=== PATIENT | female | born 1950 | race Caucasian/White ===

== ENCOUNTER 2016-10-12 18:45 | Emergency (ER) | payer OTHER ==
[~2016-10-12] VITALS: Ht 149.9 cm; Wt 49.1 kg
[2016-10-12 18:49] VITALS: Ht 149.9 cm; Wt 49.1 kg
[2016-10-12] MEDS ORDERED: ONDANSETRON (ODT) 4 MG TAB ODT STA (19:55)
[2016-10-12] MEDS ORDERED: HYDROCODONE/APAP (10/325) TAB PO ONE (20:00)
[2016-10-12] MEDS ORDERED: DIPHTH/TET/ACEL PERTUSS (ADULT) 0.5 ML VIAL IM* ONE (20:00)
[2016-10-12] MEDS ORDERED: NICARDipine HCL 30 MG CAPSULE PO ONE (20:00)
[2016-10-12] MEDS ORDERED: CEPHALEXIN 500 MG CAP PO ONE (20:30)
[2016-10-12] MEDS ORDERED: LIDOCAINE 2% VISC 15 ML CUP TOP ONE (20:30)
[2016-10-12] MEDS ORDERED: AMLO-147 PO (20:42)
[2016-10-12] MEDS ORDERED: AMO500 PO (20:42)
--- NOTE | 2016-10-12 21:37 | RADRPT ---
PROCEDURE: Right hand series CLINICAL INDICATION: Right fourth finger injury TECHNIQUE: AP oblique and lateral views COMPARISON: None available FINDINGS: A soft tissue and osseous a avulsion amputation injury is noted of the right fourth distal phalanx. An open and comminuted fracture is present of the right fourth distal phalanx. No definite evidenc e for extension to the articular surface is noted . No radiodense foreign bodies are present. The m ineralization and the remainder the joint spaces are normal. IMPRESSION: 1. Soft tissue and osseous avulsion amputation injury of the right fourth distal phalanx with an op en comminuted fracture. 2. No definite evidence for intra-articular extension. A call report was made to Clark Paulino at 10/12/2016 9:35:10 PM following the completion of the exam ination by the undersigned. RPTAT: HDC .April Alegre MD, Date Time Electronically viewed and signed by .April Alegre MD, MD on 10/12/2016 21:36 .C/
[2016-10-12] MEDS ORDERED: CEPH-443 PO (21:43)
[2016-10-12] MEDS ORDERED: HYDR-902 PO (21:43)
--- NOTE | 2016-10-12 21:55 | ERD ---
ER Documentation Chief Complaint Date/Time DATE: 10/12/16 TIME: 21:51 Chief Complaint right finger laceration while cutting with knife HPI Patient is a 66-year-old female with hypertension who presents with an injury to the right fourth finger. She cut her right fourth finger with a knife just prior to arrival. She is right-handed. She has pain. There is blood as well. She brought in the distal tip of the finger which was amputated. She has no other injuries. Upon review of old medical records this is the patient's first visit to the emergency department. She goes to [facility] for her care per the son-in-law who is with her. ROS All systems reviewed and are negative except as per history of present illness. Medications Home Meds Active Scripts Cephalexin* (Keflex*) 500 Mg Capsule, 500 MG PO QID for 7 Days, CAP Prov:RONNELL MATOS MD 10/12/16 Hydrocodone/Acetaminophen (Henley 10-325 Tablet) 1 Each Tablet, 1 TAB PO Q6H Y for PAIN, #12 TAB Prov:RONNELL MATOS MD 10/12/16 Reported Medications Amoxicillin* (Amoxicillin*) 500 Mg Cap, 500 MG PO TID, #20 CAP 10/12/16 Amlodipine Besylate* (Amlodipine Besylate*) 10 Mg Tablet, 10 MG PO DAILY, #30 TAB 10/12/16 Allergies Allergies: Coded Allergies: No Known Allergy (Unverified , 10/12/16) PMhx/Soc History of Surgery: No Anesthesia Reaction: No Hx Neurological Disorder: No Hx Respiratory Disorders: No Hx Cardiac Disorders: Yes (HTN) Hx Psychiatric Problems: No Hx Miscellaneous Medical Probl: No Hx Alcohol Use: No Hx Substance Use: No Hx Tobacco Use: No Smoking Status: Never smoker FmHx Family History: No diabetes Physical Exam Vitals Vital Signs Date Time Temp Pulse Resp B/P Pulse Ox O2 Delivery O2 Flow Rate FiO2 10/12/16 20:36 99 18 112/66 97 Room Air 10/12/16 18:49 97.9 112 24 201/102 98 Physical Exam Const: Moderate distress Head: Atraumatic Eyes: Normal Conjunctiva ENT: Normal External Ears, Nose and Mouth. Neck: Full range of motion..~ No meningismus. Resp: Clear to auscultation bilaterally Cardio: Regular rate and rhythm, no murmurs Abd: Soft, non tender, non distended. Normal bowel sounds Skin: Distal right fourth fingertip amputation with exposed bone Back: No midline or flank tenderness Ext: Distal fourth finger amputation to the right finger Neur: Awake and alert Psych: Normal Mood and Affect Results 24 hrs Current Medications Medications (Trade) Dose Ordered Sig/Kar Route PRN Reason Start Time Stop Time Status Last Admin Dose Admin Diphtheria/ Tetanus/Acell Pertussis (Adacel) 0.5 ml ONCE ONCE IM* 10/12/16 20:00 10/12/16 20:01 DC 10/12/16 20:08 Acetaminophen/ Hydrocodone Bitart (Henley (10/325)) 1 tab ONCE ONCE PO 10/12/16 20:00 10/12/16 20:01 DC 10/12/16 20:06 Ondansetron HCl (Zofran Odt) 4 mg ONCE STAT ODT 10/12/16 19:55 10/12/16 19:56 DC 10/12/16 20:05 Nicardipine HCl (Cardene) 30 mg ONCE ONCE PO 10/12/16 20:00 10/12/16 20:01 DC 10/12/16 20:05 Cephalexin (Keflex) 500 mg ONCE ONCE PO 10/12/16 20:30 10/12/16 20:31 DC 10/12/16 20:12 Lidocaine (Xylocaine (Viscous)) 15 ml ONCE ONCE TOP 10/12/16 20:30 10/12/16 20:31 DC 10/12/16 20:17 Procedures/MDM X-ray Hand 3V interpreted by me: Scaphoid: Normal Bones: Comminuted distal fourth finger fracture Joints: No dislocation Foreign body: None Splint Note Type: Metal splint Location: Right fourth finger Indication: Comminuted distal finger fracture Splint Assessment: Neurovascularly intact post splint placement with good fit. Patient is a 66-year-old female with hypertension who presents with a distal fingertip amputation. This is an open fracture. She had copious normal saline irrigation and was given Henley for pain. She was also given Zofran and Keflex for prophylaxis. The patient will need to be seen by a hand surgeon within 24 hours. She wants to follow-up with the [facility] hand clinic tomorrow as this is where she goes for her primary care anyway. I do believe this is a reasonable option. The patient will be given a prescription for Henley and Keflex. She will likely need to have ronjour done and closure by a hand surgeon. She was given a tetanus shot prior to discharge. She was placed in a metal splint. She had Surgicel applied to help with the oozing of blood. She can return for any worsening symptoms. Critical Care: Time: 35 minutes excluding all billable procedures. Treatments/Evaluations: Close monitoring and treatment of unstable vital signs, cardiorespiratory, and neurologic status, while maintaining tight balance of fluid, respiratory, and cardiac interventions. Departure Diagnosis: Primary Impression: Finger amputation, traumatic Encounter type: initial encounter Qualified Code: S68.119A - Finger amputation, traumatic, initial encounter Additional Impressions: Laceration Finger fracture Encounter type: initial encounter Finger: ring finger Fracture type: open Phalanx: distal Fracture alignment: nondisplaced Laterality: right Qualified Code: S62.664B - Open nondisplaced fracture of distal phalanx of right ring finger, initial encounter Condition: Stable Patient Instructions: Finger Tip Amputation, Open Treatment Referrals: JACK PATEL MD Hand Clinic at [facility] Additional Instructions: [facility]:Ir a alguna de las siguientes hospitales en los prximos 1-2 [place]: [facility] [address] [place] [address] [facility] [address] [place] [address] [facility] [address] [place] [address] RONNELL MATOS MD October 12, 2016 21:55
[2016-10-12 22:07] VITALS: BP 126/64; PULSE 92; RESP 16
== END 2016-10-12 22:08 | disposition home or self-care (01) ==
LOC: E/R 18:45
DX: S68.119A Complete traumatic metacarpophalangeal amputation of unspecified finger, initial encounter (principal); I10 Essential (primary) hypertension; W26.0XXA Contact with knife, initial encounter; Y92.9 Unspecified place or not applicable
CPT/HCPCS: 29130; 73130; 90471; 90715; Z7502; Z7610